=== PATIENT | female | born 1950 | race Caucasian/White ===

== ENCOUNTER 2016-09-22 11:54 | Emergency (ER) | payer OTHER ==
[~2016-09-22] VITALS: Ht 162.6 cm; Wt 89.6 kg
[~2016-09-22 11:54] MED LIST: ACET-749 PO; ASPI81TA28 PO; ATV5 PO; BIMA0.01 OPB; CALC200T PO; CLB200 PO; FLUO20CA35 PO; HYDR-3419 PO; INDA1TAB3 PO; MAGNTAB4 PO; METO25TA3 PO; POTA-335 PO; SYN150 PO
[2016-09-22 11:59] VITALS: TEMP 36.6; Ht 162.6 cm; Wt 89.6 kg
[2016-09-22] MEDS ORDERED: OXYCODONE/ACETAMINOPHEN 5-325 TAB PO ONE (12:15)
[2016-09-22] MEDS ORDERED: ACET-1256 PO (12:18)
--- NOTE | 2016-09-22 12:41 | EMERGENCY ROOM VISIT NOTE ---
History First contact with patient: 12:07 Chief Complaint: FALL Stated Complaint: FALL History of Present Illness The patient is a 66 year old female who presents to the Emergency Room with complaints of fall. The patient states that she was home and walking to get in the car when she slipped and fell. She states she fell forward flat onto her chest. She states that she did not have her hand out to catch herself. She states she did not strike her face. The patient complains of pain in the center of the chest. The pain is worse with extension and abduction of the arms. She rates her discomfort a 9/10. She denies striking her head or having loss of consciousness. She denies any shortness of breath or trouble breathing at this time. She denies any abdominal pain, nausea or vomiting. She states that she sustained a small abrasion to the right knee but does not have any pain in this area. She denies any other pain or injury to the extremities. Review of Systems A 10 system review of systems was completed with positives and pertinent negatives listed in the HPI. Past Medical/Surgical History Medical Problems: (1) Benign essential hypertension (2) Endometrial adenocarcinoma (3) Hypothyroidism Social History Smoking Status: Former Smoker Marital Status: Housing Status: lives with family Current/Historical Medications Scheduled Aspirin (Aspirin Ec), 81 MG PO LUNCH Bimatoprost (Lumigan), 1 DROPS OPB HS Calcium Carbonate-Vitamin D (Oscal 500/200 D-3), 1 TAB PO BID Celecoxib (Celebrex *), 200-400 MG PO DAILY Fluoxetine (Prozac), 20 MG PO QAM Indapamide (Lozol), 1.25 MG PO QAM Levothyroxine (Synthroid *), 0.15 MG PO 5XWK Magnesium Chloride (Slow-Mag Tab), 3 TAB PO BID Metoprolol Succ (Toprol Xl) (Toprol-Xl), 25 MG PO QAM Potassium Chloride (Micro-K Ext Rel), 3 TAB PO BID Scheduled PRN Acetaminophen (Tylenol), 1,000 MG PO DAILY PRN for Pain Hydrocodon/Acetaminophen 5MG/300MG (Vicodin (5MG/300MG)), 1 TAB PO Q6H PRN for Pain Lorazepam (Ativan *), 0.5-1 MG PO for Anxiety Oxycodone/Acetaminophen 5MG/325MG (Percocet 5MG/325MG), 1-2 TABS PO Q6 PRN for Pain Allergies Coded Allergies: Eggs or Egg-derived Products (Verified Allergy, Unknown, nausea/vomiting/ hives, 09/22/16) Penicillins (Verified Allergy, Unknown, HIVES, 09/22/16) [place] (Verified Allergy, Unknown, nausea/vomiting, 09/22/16) Morphine (Verified Adverse Reaction, Unknown, MAKES HER "WIRED", 09/22/16) Uncoded Allergies: band aids (Allergy, Unknown, skin blisters, 09/20/14) Physical Exam Vital Signs Date Time Temp Pulse Resp B/P Pulse Ox O2 Delivery O2 Flow Rate FiO2 09/22/16 14:08 52 18 126/71 94 09/22/16 11:59 36.6 69 16 163/82 95 Room Air Physical Exam VITALS: Vitals are noted on the nurse's note and reviewed by myself. Vital signs stable. GENERAL: This is a 66-year-old female, in no acute distress, nondiaphoretic, well-developed well-nourished. SKIN: The skin was without rashes, erythema, edema, or bruising. There is no tenting of the skin. Capillary reflex less than 2 seconds. HEAD: Normocephalic atraumatic. EARS: External auditory canals clear, tympanic membranes pearly jurado without erythema or effusion bilaterally. EYES: Pupils equal round and reactive to light and accommodation. Conjunctivae without injection, sclerae without icterus. Extraocular movements intact. NOSE: Patent, turbinates without inflammation or discharge. MOUTH: Mucous membranes moist. Tonsils are not enlarged. Pharynx without erythema or exudate. Uvula midline. Airway patent. Tongue does not deviate. NECK: Supple without nuchal rigidity. Cervical spine is nontender. No JVD. HEART: Regular rate and rhythm without murmurs gallops or rubs. LUNGS: Clear to auscultation bilaterally without wheezes, rales or rhonchi. No retractions or accessory muscle use. There is mild tenderness to palpation to the center of the chest and over the pectoral muscles. ABDOMEN: Positive bowel sounds x 4. Soft, nontender, without masses or organomegaly. MUSCULOSKELETAL: No muscle atrophy, erythema, or edema noted. Full range of motion without joint tenderness in all extremities. The patient has pain over the pectoral muscles when she extends the arms posteriorly. Normal gait. Strength 5/5 throughout. There is a superficial abrasion to the right knee without bleeding. There is no tenderness, ecchymosis, edema or deformity of the right knee. There is a midline well-healed surgical incision over the left knee and there is no pain or abnormality of the left knee. NEURO: Patient was alert and oriented to person place and time. Normal sensation to light and sharp touch. No focal neurological deficits. Medical Decision & Procedures ER Provider Diagnostic Interpretation: TWO VIEW CHEST CLINICAL HISTORY: Fall. Chest wall pain. FINDINGS: PA and lateral chest radiographs are compared to study dated 02/18/2015. The heart is mildly enlarged. The pulmonary vasculature is noncongested. Chronic interstitial thickening is similar to previous. Minimal left basilar atelectasis is observed. There is no airspace consolidation, pleural effusion, or pneumothorax. The skeletal structures are osteopenic. The bony thorax appears intact. Degenerative change and scoliosis is noted in the thoracic spine. Cholecystectomy clips are seen in the right upper quadrant. IMPRESSION: Mild cardiac enlargement with no acute cardiopulmonary abnormality. Medications Administered Medications (Trade) Dose Ordered Sig/Kalen Route Start Time Stop Time Status Last Admin Dose Admin Oxycodone/ Acetaminophen (Percocet 5-325MG Tab) 1 tab NOW ONCE PO 09/22/16 12:15 09/22/16 12:17 DC 09/22/16 12:24 1 TAB ED Course The patient was seen and examined. Previous visits were reviewed. The patient suffered a mechanical fall when she fell for it onto her chest. She did not strike her head, face or have loss of consciousness. She was not able to break her fall with her hands. I suspect that she has a chest wall contusion and strain of the pectoralis muscles. Chest x-ray was negative for pneumothorax, hemothorax or obvious rib fracture. She does not have any complaints of abdominal pain and no abdominal tenderness on exam. She was given 1 Percocet in the emergency department with improvement in her pain. She was given a prescription for Percocet. She should contact her family doctor to schedule a follow-up appointment for further evaluation and management. She should return to the ER with any worsening symptoms. The patient was also seen and examined by who agrees with the assessment and treatment plan. Medical Decision The differential diagnosis includes chest wall contusion, muscle strain, pneumothorax, hemothorax, pulmonary contusion, cardiac contusion, intra- abdominal injury, among others NAHOMY Drug Monitoring Program Search Results: patient reviewed within database, see additional documentation Drug Monitoring Findings: The patient does receive regular prescriptions for [place] that she takes only on a when necessary basis. Given the fall and the acute pain and injury, she was given additional, small prescription for Percocet. Impression Primary Impression: Fall Additional Impressions: Chest wall muscle strain Chest wall contusion Departure Information Dispostion Home / Self-Care Condition GOOD Prescriptions Oxycodone/Acetaminophen 5MG/325MG (PERCOCET 5MG/325MG) Tab 1-2 TABS PO Q6 Y for Pain, #20 TAB For Initial Treatment Prov: Cynthia Mendez PA-C 09/22/16 Referrals Olayinka Miller M.D. (PCP) Patient Instructions ED Contusion Chest Wall, My [facility] Additional Instructions Ibuprofen 600 mg every 6-8 hours for moderate pain Percocet 1-2 tablet every 4-6 hours as needed for worse pain. No driving or alcohol use with Percocet and do not take with Tylenol. Rest, no heavy lifting more than 15 pounds for the next 5-7 days Return with any severe chest pain, trouble breathing, shortness of breath, fevers, abdominal pain Otherwise, recheck with your family doctor at the end of the week if symptoms are not improving Ice over the next 24-48 hours, then use heat Problem Qualifiers Primary Impression: Fall Encounter type: initial encounter Qualified Codes: W19.XXXA - Unspecified fall, initial encounter
--- NOTE | 2016-09-22 13:15 | DIAGNOSTIC IMAGING REPORT ---
TWO VIEW CHEST CLINICAL HISTORY: Fall. Chest wall pain. FINDINGS: PA and lateral chest radiographs are compared to study dated 02/18/2015. The heart is mildly enlarged. The pulmonary vasculature is noncongested. Chronic interstitial thickening is similar to previous. Minimal left basilar atelectasis is observed. There is no airspace consolidation, pleural effusion, or pneumothorax. The skeletal structures are osteopenic. The bony thorax appears intact. Degenerative change and scoliosis is noted in the thoracic spine. Cholecystectomy clips are seen in the right upper quadrant. IMPRESSION: Mild cardiac enlargement with no acute cardiopulmonary abnormality. Electronically signed by: Henrik Lawson M.D. 09/22/2016 1:13 PM Dictated Date/Time: 09/22/2016 1:11 PM
--- NOTE | 2016-09-22 13:51 | EMERGENCY ROOM VISIT NOTE ---
ED Visit Note First contact with patient: 12:07 Patient was seen by our PA/COMPUTATIONAL PHYSICIST. I was involved in the patient's care and did evaluate the patient myself. I was involved in the care throughout the ER stay. The patient presents after falling. She is sore across the sternal chest wall. No bony step-off. Chest x-ray is unremarkable. Contusion seems most likely. The patient is being discharged home.
[2016-09-22] MEDS ORDERED: OXYC-57 PO (13:55)
[2016-09-22 14:08] VITALS: BP 126/71; PULSE 52; O2SAT 94
[2017-04-21] MEDS ORDERED: DORZ2SOL17 OPB (09:08)
[2017-04-21] MEDS ORDERED: FLUO20CA35 PO (09:08)
[2017-04-21] MEDS ORDERED: IMD/2 PO (09:08)
[2017-04-21] MEDS ORDERED: MAGN1CAP2 PO (09:08)
[2017-04-21] MEDS ORDERED: LZL25 PO (09:08)
[2017-04-21] MEDS ORDERED: POTA10CA28 PO (09:08)
[2017-05-20] MEDS ORDERED: BROM0.07 (10:52)
[2017-05-20] MEDS ORDERED: DIFL0.0519 (10:52)
[2017-05-20] MEDS ORDERED: GATI1SOL2 (10:52)
== END 2016-09-22 14:09 | disposition home or self-care (01) ==
LOC: C.EDB 11:55 → C.EDC 14:09
DX: S20.219A Contusion of unspecified front wall of thorax, initial encounter (principal); W19.XXXA Unspecified fall, initial encounter; I10 Essential (primary) hypertension; E03.9 Hypothyroidism, unspecified; Z87.891 Personal history of nicotine dependence

== ENCOUNTER → 2016-12-17 | Outpatient (CLI) | payer OTHER ==
[~2016-12-17] MED LIST changes: +ACET-1256 PO; -ACET-749 PO; +BROM0.07; +DIFL0.0519; +DORZ2SOL17 OPB; +GATI1SOL2; +IMD/2 PO; +LZL25 PO; +MAGN1CAP2 PO; +OXYC-57 PO; +POTA10CA28 PO
--- NOTE | 2016-12-17 16:46 | MAMMOGRAPHY REPORT ---
BILATERAL DIGITAL SCREENING MAMMOGRAM WITH CAD: 12/17/2016 CLINICAL HISTORY: Routine screening examination. TECHNIQUE: Bilateral CC and MLO views were obtained. Current study was also evaluated with a Comput er Aided Detection (CAD) system. COMPARISON: Comparison is made to exams dated: 12/13/2015 mammogram, 11/17/2014 mammogram, 10/06/2013 m ammogram, 10/05/2012 mammogram, 09/30/2011 mammogram, and 10/08/2010 mammogram - [facility]. BREAST COMPOSITION: There are scattered areas of fibroglandular density in both breasts. FINDINGS: There is a stable benign rim calcification in the anterior left breast. No suspicious mas s, architectural distortion or cluster of microcalcifications is seen. IMPRESSION: ACR BI-RADS CATEGORY 1: NEGATIVE There is no mammographic evidence of malignancy. A 1 year screening mammogram is recommended. The p atient will receive written notification of the results. Approximately 10% of breast cancers are not detected with mammography. A negative mammographic repor t should not delay biopsy if a clinically suggestive mass is present. Savana Myles M.D. ay/:12/17/2016 16:08:34 Garbage Pick Up Man: Mel LAGUNAS([place])(M), [facility] letter sent: Normal 1/2 BI-RADS Code: ACR BI-RADS Category 1: Negative
== END | disposition home or self-care (01) ==
LOC: C.MAMM 09:02
PROVIDERS: ATTEND Obstetrics & Gynecology
DX: Z12.31 Encounter for screening mammogram for malignant neoplasm of breast (principal)

== ENCOUNTER → 2017-01-29 | Outpatient (CLI) | payer OTHER ==
[2017-01-29 12:47] LABS: BASO % 0.4 %; BASO ABS # 0.02 K/uL (0-0.2); COMPLETE YES; EOS % 5.8 %; HEMATOCRIT 41.9 % (37-47); IG% 0.4 %; LYMPH % 27.3 %; LYMPH ABS # 1.31 K/uL (1.2-3.4); MEAN CELL VOLUME 89.3 fL (80-100); MEAN CORPUSCULAR HEMOGLOBIN 29.9 pg (25-34); MEAN CORPUSCULAR HGB CONC 33.4 g/dl (32-36); MEAN PLATELET VOLUME 11.4 fL (7.4-10.4); MONO % 6.7 %; NEUT % 59.4 %; PLATELET COUNT 263 K/uL (130-400); RED BLOOD COUNT 4.69 M/uL (4.2-5.4)
[2017-01-29 13:06] LABS: CALCIUM 9.2 mg/dl (8.5-10.1)
[2017-01-29 13:11] LABS: ALT/SGPT 28 U/L (12-78); AST/SGOT 21 U/L (15-37); BLOOD UREA NITROGEN 13 mg/dl (7-18); BUN/CREATININE RATIO 17.5 (10-20); CARBON DIOXIDE 30 mmol/L (21-32); CHLORIDE 101 mmol/L (98-107); CHOLESTEROL 212 mg/dl (0-200); CREATININE 0.73 mg/dl (0.60-1.20); GLUCOSE 84 mg/dl (70-99); POTASSIUM 3.2 mmol/L (3.5-5.1); SODIUM 138 mmol/L (136-145); TRIGLYCERIDES 143 mg/dl (0-150); VERY LOW DENSITY LIPOPROT CALC 29 mg/dl
[2017-01-29 13:19] LABS: ALB/GLOB RATIO 1.1 (0.9-2); ALKALINE PHOSPHATASE 76 U/L (45-117); CHOLESTEROL/HDL RATIO 4.2; HDL CHOLESTEROL 51 mg/dl; THYROID STIMULATING HORMONE 0.559 uIu/ml (0.300-4.500)
== END | disposition home or self-care (01) ==
LOC: C.LABSPEC 12:17
PROVIDERS: ATTEND Internal Medicine
DX: I10 Essential (primary) hypertension (principal); E03.9 Hypothyroidism, unspecified; M19.90 Unspecified osteoarthritis, unspecified site; E78.5 Hyperlipidemia, unspecified

== ENCOUNTER → 2017-02-13 | Outpatient (CLI) | payer OTHER ==
[2017-02-13 15:10] LABS: BASO % 0.5 %; BASO ABS # 0.03 K/uL (0-0.2); COMPLETE YES; EOS % 5.3 %; HEMATOCRIT 42.4 % (37-47); IG% 0.3 %; LYMPH % 24.4 %; LYMPH ABS # 1.52 K/uL (1.2-3.4); MEAN CELL VOLUME 89.6 fL (80-100); MEAN CORPUSCULAR HEMOGLOBIN 29.6 pg (25-34); MEAN PLATELET VOLUME 11.1 fL (7.4-10.4); MONO % 7.4 %; NEUT % 62.1 %; PLATELET COUNT 265 K/uL (130-400); RED BLOOD COUNT 4.73 M/uL (4.2-5.4); WHITE BLOOD COUNT 6.22 K/uL (4.8-10.8)
[2017-02-13 15:21] LABS: ALT/SGPT 25 U/L (12-78); AMYLASE 60 U/L (25-115); AST/SGOT 15 U/L (15-37); BLOOD UREA NITROGEN 17 mg/dl (7-18); BUN/CREATININE RATIO 22.8 (10-20); CALCIUM 8.9 mg/dl (8.5-10.1); CARBON DIOXIDE 31 mmol/L (21-32); CHLORIDE 103 mmol/L (98-107); CREATININE 0.74 mg/dl (0.60-1.20); GLUCOSE 103 mg/dl (70-99); POTASSIUM 3.1 mmol/L (3.5-5.1); SODIUM 141 mmol/L (136-145)
[2017-02-13 15:24] LABS: ALB/GLOB RATIO 1.2 (0.9-2); ALKALINE PHOSPHATASE 74 U/L (45-117)
== END | disposition home or self-care (01) ==
LOC: C.LABSPEC 14:54
PROVIDERS: ATTEND Internal Medicine
DX: R10.9 Unspecified abdominal pain (principal); K52.9 Noninfective gastroenteritis and colitis, unspecified

== ENCOUNTER → 2017-02-14 | Outpatient (CLI) | payer OTHER | END | disposition home or self-care (01) | LOC: C.LABSPEC 08:16 | PROVIDERS: ATTEND Internal Medicine | DX: R10.9 Unspecified abdominal pain (principal) ==

== ENCOUNTER → 2017-05-02 | Outpatient (CLI) | payer OTHER ==
[~2017-05-02] MED LIST changes: -ACET-1256 PO; -INDA1TAB3 PO; -MAGNTAB4 PO; -OXYC-57 PO; -POTA-335 PO
--- NOTE | 2017-05-02 11:42 | DIAGNOSTIC IMAGING REPORT ---
RIGHT HIP UNILATERAL 2 VIEWS CLINICAL HISTORY: Right hip pain. No recent trauma. COMPARISON: CT of the abdomen and pelvis July 15, 2014. FINDINGS: Alignment of the right hip is anatomic. There is no fracture or suspicious lesion. There is no radiographic evidence of avascular necrosis. There is moderate joint space narrowing with mild osteophytosis. IMPRESSION: 1. No acute fracture. 2. Mild to moderate osteoarthritis of the right hip. Electronically signed by: Sukhwinder Guzman M.D. 05/02/2017 11:40 AM Dictated Date/Time: 05/02/2017 11:40 AM
== END | disposition home or self-care (01) ==
LOC: C.RAD 10:47
PROVIDERS: ATTEND Internal Medicine
DX: M25.551 Pain in right hip (principal)

== ENCOUNTER → 2017-05-20 | Day surgery (SDC) | payer OTHER ==
[2017-04-21 09:09] VITALS: Ht 162.6 cm; Wt 84.1 kg
--- NOTE | 2017-05-18 13:57 | History and Physical ---
History & Physical Date of Service May 18, 2017. History & Physical 67 year-old female scheduled to undergo right cataract surgery on 08/2017. Her medical problems include: * endometrial adenocarcinoma diagnosed in June of 2014. She was treated at [facility]. It was a stage II. She underwent surgery with AURE/ BSO and pelvic lymph node resection on 07/29/2014. Postoperatively she was treated with radiation therapy, cuff brachii therapy, and 3 cycles of carboplatin/Taxol. She has no evidence of any reoccurrence * Arterial hypertension * Inflammatory arthritis * Overweight * Anxiety * Mild depression * Hypothyroidism * Glaucoma Her current medications include: * levothyroxine 50 mcg daily 5 days a week she skips Wednesdays and Sundays * Metoprolol tartrate 50 mg daily * Indapamide 2.5 mg daily * Prozac 20 mg daily * Celebrex 200 mg once or twice a day * Potassium chloride 10 mEq she is taking a total of 6 capsules daily * lorazepam 0.5 mg one or 2 tablets daily * Aspirin 81 mg daily * calcium with vitamin D 600 mg twice a day * Slow magnesium at total of 6 tablets daily * Lumigan 0.01% one drop in each eye daily * She has been prescribed Tylenol with codeine #3 for pain control. She also takes Vicodin one tablet at night. Prescriptions by her travel information center supervisor. She has followups with Dr. Ron Jauregui in rheumatology, Dr. Keanu Mckenzie in orthopedic surgery, Dr. Suresh at [facility] for her endometrial cancer. She is . No children. No smoking. no excessive alcohol. 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 ALLERGIES: * penicillin. Had a rash. * Eggs. * Tramadol which causes headaches REVIEW OF SYSTEMS: She denied any headache or dizziness or lightheadedness. Decreased vision in the right eye. Denied any earache sore throat or neck pain. Denied any chest pain or sugar or tightness. No shortness of breath. She does complain of recurrent abdominal pain. Recurrent diarrhea. No blood in her stool. No urinary problem. She does complain of joint pain. Especially her left hip. No ankle edema. EXAMINATION: GENERAL : Well developed. Well nourished. No acute distress.Weight 84.09 kg, height 162.6 cm, BMI 31.8. VITAL SIGNS : Blood Pressure : 138/72, pulse 64, temperature 90.8, respiration 18. SKIN : Warm and dry. No rash. HEENT :Wears glasses. Treated for glaucoma. Cataracts right eye. NECK : Supple. No adenopathy. No thyromegaly. No JVD. Normal carotid pulses. No carotid bruit. HEART: Regular heart sounds without any murmur rub or gallop. PMI not displaced. LUNGS: Clear. Normal breath sounds. ABDOMEN: Soft.nonspecific abdominal tenderness without any guarding or rebound.. No organomegaly or masses. Good bowel sounds. BACK: No spine or CVA tenderness. EXTREMITIES : No edema clubbing or cyanosis. No joint or muscle tenderness. Good peripheral pulses.Surgical scars from prior surgery NEUROLOGICAL EXAMINATION: She is alert and oriented. No evidence of any lateralized deficit. ASSESSMENT: * preoperative examination. Patient is scheduled to undergo right cataract surgery on 05/20/2017 * History of endometrial cancer. * Arterial hypertension * Osteoarthritis * Inflammatory polyarthritis * Hypothyroidism * Glaucoma * Anxiety and mild depression PLAN: * continuing her same medications * I see no contraindication dictation to her anticipated cataract surgery.
[~2017-05-20] VITALS: Ht 162.6 cm; Wt 84.1 kg
[~2017-05-20] MED LIST changes: +500ML BSS 0.3ML EPI 1:1000PF IRRIG ONE; +ACETAMINOPHEN 325 MG TAB PO PRN; +AMVISC PLUS 0.8ML SYRINGE INT OCU ONE; +ATROPINE SULFATE 0.1 MG/ML 5ML SYR IV PRN; +BSS FLUSH ONE; +EpHEDrine SULFATE INJ 50 MG/ML AMP IV PRN; +EpINEphrine INJ 1MG/ML AMP 1 MG/ML AMP ONE; +LACTATED RINGER'S 1000ML 500 ML IV SCH; +LIDOCAINE 3.5% OPH GEL PER APPLICATION CHARGE ONE; +LIDOCAINE HCL 1% MPF 2 ML VIAL ONE; +MIDAZOLAM HCL 1 MG/ML 2ML VIAL ONE; +MIX: 4ML BSS 1ML EPI 1:1000 PF INSTIL ONE; +OCUCOAT 1 ML SOLN IO ONE; +POVIDONE-IODINE OP SOLN 30 ML BTL ONE; +PROPARACAINE 0.5% OP SOLN PER DROP CHARGE OPR SCH; +TOBRAMYCIN/DEXAMETHASONE OPH OINT PER APPLN CHARGE ONE
[2017-05-20] MEDS: PHENYLEPHRINE HCL 2.5% OP SOLN PER DROP CHARGE OPR SCH ×2 (11:01→11:06)
[2017-05-20] MEDS: TROPICAMIDE 1% OP SOLN PER DROP CHARGE OPR SCH ×2 (11:02→11:06)
[2017-05-20] MEDS: CYCLOPENTOLATE HCL 1% OP SOLN PER DROP CHARGE OPR SCH ×2 (11:03→11:08)
[2017-05-20] MEDS: KETOROLAC 0.5% OP SOLN PER DROP CHARGE OPR SCH ×2 (11:04→11:09)
[2017-05-20] MEDS: GATIFLOXACIN OP SOLN PER DROP CHARGE OPR SCH ×2 (11:05→11:15)
--- NOTE | 2017-05-20 11:35 | History & Physical Bridge - SC ---
H&P Re-Evaluation Bridge Note: I have examined the patient, reviewed the History & Physical and in the interval since the performance of the History & Physical I have noted the following changes of clinical significance: No changes noted
--- NOTE | 2017-05-20 12:02 | Anesthesia Progress Nt - [facility] ---
Anesthesia Post Op Note Date & Time May 20, 2017 at 12:02 Vital Signs Pain Intensity: 0 Vital Signs Past 12 Hours Date Time Temp Pulse Resp B/P (MAP) Pulse Ox O2 Delivery O2 Flow Rate FiO2 05/20/17 10:52 36.7 66 18 137/84 (101) 94 Room Air Notes Mental Status: alert / awake / arousable, participated in evaluation Pt Amnestic to Procedure: Yes Nausea / Vomiting: adequately controlled Pain: adequately controlled Airway Patency, RR, SpO2: stable & adequate BP & HR: stable & adequate Hydration State: stable & adequate Anesthetic Complications: no major complications apparent
--- NOTE | 2017-05-20 12:05 | [facility] Operative Report ---
Operative Report Date of Service May 20, 2017. Operative Report 1. PREOPERATIVE DIAGNOSIS: Cataract of the right eye. 2. POSTOPERATIVE DIAGNOSIS: Same. 3. PROCEDURE: Phacoemulsification with intraocular lens implantation of the right eye. SURGEON: Dr. Faisal Bustos. ANESTHESIA: Topical Lidocaine gel, 1% Non- Preserved intracameral Lidocaine, and monitored intravenous sedation. INDICATIONS FOR THE PROCEDURE: The patient is a 67 - year-old female with a history of cataract of the right eye causing significant visual impairment. The details of the proposed procedure were explained to the patient who asked appropriate questions and following discussion of all risks, benefits and alternatives agreed to have the procedure done. 4. OPERATION AND FINDINGS: DESCRIPTION OF PROCEDURE: After informed consent was obtained, the patient was brought to the Operating Room at the [facility]. The patient was placed in a supine position and then the right eye was prepped and draped in the usual sterile fashion for intraocular surgery. A drop of topical Lidocaine gel was placed in the operative eye. A wire lid speculum was then placed in the fornices. A corneal paracentesis was then created temporally. The Non-Preserved Lidocaine was then instilled into the anterior chamber. The anterior chamber was then pressurized with viscoelastic. A 2.0 mm clear corneal incision was then created temporally. A cystotome was inserted into the anterior chamber and used to create a tear in the anterior lens capsule. This capsular tear was then used to create a small flap and the flap was dragged in a counterclockwise direction in order to create a continuous curvilinear capsulorrhexis. Hydrodissection was accomplished with balanced salt solution. Phacoemulsification of the lens nucleus was then performed in a standard [id number] technique. The phaco time was 20 seconds with an average power of 14 %. The remaining cortical material was removed using irrigation aspiration. The capsular bag was then filled with viscoelastic. A Bausch [employer] Lomb MI60L +17.5 diopters lens was then loaded into the injector and injected into the capsular bag. The remaining viscoelastic was removed with the irrigation aspiration handpiece. The wound was hydrated and then checked and found to be watertight. The intraocular pressure was checked and found to be adequate. The wire lid speculum was removed and the patient's face was cleaned and dried. TobraDex ointment was placed in the inferior fornix. The patient was discharged to the Recovery Room having tolerated the procedure well. There were no complications. The patient will be seen tomorrow in the office for follow-up. I attest to the content of the Intraoperative Record and any orders documented therein. Any exceptions are noted below.
--- NOTE | 2017-05-20 12:05 | Discharge Instructions-SurgCtr ---
Discharge Instructions Date of Service May 20, 2017. Visit Reason for Visit: Cataract Right Eye Discharge Discharge Diagnosis / Problem: cataract Discharge Goals Goal(s): Improve function Activity Recommendations Activity Limitations: per Instructions/Follow-up section Anesthesia . Post Anesthesia Instructions: If you have had General Anesthesia or IV Sedation: * Do not drive today. * Resume driving when surgeon permits. * Do not make important decisions or sign legal documents today. * Call surgeon for: 1. Temperature elevations greater than 101 degrees F. 2. Uncontrollable pain. 3. Excessive bleeding. 4. Persistent nausea and vomiting. 5. Medication intolerance (nausea, vomiting or rash). * For nausea and vomiting use only clear liquids such as: tea, soda, bouillon until nausea subsides, then gradually increase diet as tolerated. * If you have any concerns or questions, call your surgeon's office. If physician is unavailable and it is an emergency, call 911 or go to the nearest emergency room. . Instructions / Follow-Up Instructions / Follow-Up ACTIVITY RECOMMENDATIONS: * No strenuous lifting, jogging or running for 4 days * No swimming or yard work for 1 week. * Limited bending is permitted, such as putting on shoes. RETURN TO SCHOOL/WORK: No work until seen by physician in office. MEDICATIONS: Resume previous medications unless instructed otherwise by your surgeon. This includes eye drops for glaucoma. Zymaxid/Gatifloxacin ([place] cap) - one drop every 2 hours until bedtime Nevanac/Ilevro/Prolensa/Ketorolac (jurado cap) - one drop every 4 hours until bedtime Prednisolone/Durezol (white/pink cap, SHAKE WELL) - one drop every 2 hours until bedtime Starting tomorrow - all 3 drops every 4 hours until seen in the office Optive drops - as needed for discomfort SPECIAL CARE INSTRUCTIONS: * Wear eyeshield when sleeping, for four nights. * You may wear your own glasses or sunglasses while awake. * You may read or watch TV * You may shower and wash your face, but be gentle around the eye and pat dry. * Blurry vision and mild irritation are normal. * Call office if pain is more severe or vision becomes dark at . FOLLOW UP VISIT: Follow-up with Dr Bustos tomorrow. Diet Recommendations Home Diet: resume previous diet Procedures Procedures Performed: Right Eye Cataract Phacoemulsification With Introacular Lens Implant Pending Studies Studies pending at discharge: no Medical Emergencies . Who to Call and When: Medical Emergencies: If at any time you feel your situation is an emergency, please call 911 immediately. . Non-Emergent Contact Non-Emergency issues call your: [facility] [employer] . . "Provider Documentation" section prepared by Faisal Bustos. .
[2017-05-20 12:06] VITALS: TEMP 36.7
[2017-05-20 12:28] VITALS: BP 123/80; PULSE 55; O2SAT 100
== END | disposition home or self-care (01) ==
LOC: X.SURG 10:28
PROVIDERS: ATTEND Ophthalmology
DX: H26.9 Unspecified cataract (principal); I10 Essential (primary) hypertension; E03.9 Hypothyroidism, unspecified; F41.9 Anxiety disorder, unspecified; F32.9 Major depressive disorder, single episode, unspecified; M06.4 Inflammatory polyarthropathy; H50.9 Unspecified strabismus; Z79.82 Long term (current) use of aspirin; Z79.899 Other long term (current) drug therapy; Z85.42 Personal history of malignant neoplasm of other parts of uterus; Z92.3 Personal history of irradiation; Z92.21 Personal history of antineoplastic chemotherapy

== ENCOUNTER → 2017-06-17 | Outpatient (CLI) | payer OTHER ==
[~2017-06-17] MED LIST changes: -500ML BSS 0.3ML EPI 1:1000PF IRRIG ONE; -ACETAMINOPHEN 325 MG TAB PO PRN; -AMVISC PLUS 0.8ML SYRINGE INT OCU ONE; -ATROPINE SULFATE 0.1 MG/ML 5ML SYR IV PRN; -BSS FLUSH ONE; -EpHEDrine SULFATE INJ 50 MG/ML AMP IV PRN; -EpINEphrine INJ 1MG/ML AMP 1 MG/ML AMP ONE; -LACTATED RINGER'S 1000ML 500 ML IV SCH; -LIDOCAINE 3.5% OPH GEL PER APPLICATION CHARGE ONE; -LIDOCAINE HCL 1% MPF 2 ML VIAL ONE; -MIDAZOLAM HCL 1 MG/ML 2ML VIAL ONE; -MIX: 4ML BSS 1ML EPI 1:1000 PF INSTIL ONE; -OCUCOAT 1 ML SOLN IO ONE; -POVIDONE-IODINE OP SOLN 30 ML BTL ONE; -PROPARACAINE 0.5% OP SOLN PER DROP CHARGE OPR SCH; -TOBRAMYCIN/DEXAMETHASONE OPH OINT PER APPLN CHARGE ONE
[2017-06-17 13:51] VITALS: BP 112/73; PULSE 72; TEMP 36.6; O2SAT 96
--- NOTE | 2017-06-17 15:44 | Radiation Oncology Follow-Up ---
Radiation Oncology Follow-Up Date of Visit Jun 17, 2017. Reason For Visit Annual follow-up Radiation Completion Date finished IMRT and 3 HDR treatments on 12-02-14 Diagnosis (1) Endometrial adenocarcinoma Status: Resolved Onset Date: 06/21/2014 Stage: ll Permanent Comment: Total laparoscopic hysterectomy with bilateral salpingo- oophorectomy. Right pelvic and obturator lymphadenectomy and lysis of adhesions. 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 She received 5040 cGy to the pelvis with IMRT followed by 3 HDR treatments total 6240 cGy Status post completion of systemic chemotherapy 02/13/2015 Last Edited By: Myrna Byrne on Jun 08, 2015 15:22 History of Present Illness Ms. Brady is a 66-year-old postmenopausal female who presented with vaginal bleeding. She went through menopause over 10 years ago and noted spotting for the past few months with 1 day of heavy bleeding. 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 His examination revealed no pelvic abnormalities. An endocervical dilatation was unable to be performed. An ultrasound was performed on 2013. A D&C was ultimately performed. The uterus sounded to 7.5 cm and a biopsy was performed on 2013. This revealed an endometrioid adenocarcinoma FIGO grade 1 of 3. The tissue was evaluated for microsatellite instability by immunohistochemistry. Intact expression of all 4 proteins were present within the carcinoma. These findings are therefore not consistent with microsatellite instability. Case: [id number]. The patient was subsequent seen by Dr. Rayne Jason Gynecologic Oncologist at [facility] for evaluation and discussion of treatment options. The tissue from [facility] was reviewed at their pathology Department confirming fragments of adenocarcinoma endometrioid grade 2 with squamous differentiation. Accession #: [id number]. A CT scan of the abdomen and pelvis was performed on this showed diffuse endometrial thickening likely related to the diagnosis of endometrial carcinoma. There was no CT evidence of metastatic disease. Dr. Jason discussed the management of endometrial cancer with the patient. The recommendation was for a total laparoscopic hysterectomy, bilateral salpingo-oophorectomy and pelvic lymphadenectomy. The patient agreed and on 07/29/2014 patient underwent a surgical procedure. This included a right pelvic and obturator lymphadenectomy and lysis of adhesions. The pathologic evaluation of the tissue confirmed an endometrial adenocarcinoma, endometrioid type, FIGO grade 2. The tumor invaded 14 mm into a myometrial thickness of 16 mm. There was evidence of lymphatic invasion. The tumor extended to the lower uterine segment and to the endocervix. The right tube and ovary were unremarkable. The left ovary was unremarkable. The left fallopian tube revealed an endometrioid adenocarcinoma favoring a primary lesion. The staging of the endometrial cancer was therefore a pathologic stage T2 N0 grade 2. The staging of the left fallopian tube confirmed intraepithelial endometrioid well-differentiated grade 1 measuring 0.1 cm. This was a pathologic Tis: Tubal intraepithelial carcinoma limited to tubal mucosa. Accession #: [id number]. The patient has recovered well from her surgery. Her case was presented at the multidisciplinary cancer conference at [facility]. Recommendations were based on NCCN Guidelines and included a recommendation of external radiation and vaginal vault boost for adjuvant treatment of the endometrioid carcinoma. The recommendation included subsequent consideration of 3 cycles of chemotherapy of Carbo/Taxol for her fallopian tube carcinoma. The patient will be seen by Dr. Whitaker for discussion of the chemotherapy. She completed the radiation therapy 12/02/2014. She received 5040 cGy with IMRT. She had 3 HDR treatments. Her total dose of radiation was 6240 cGy. She then returned and completed systemic chemotherapy 02/13/2015. Interim History She has been stable over this past year. She denies any vaginal bleeding or irritation. She has been seen by the gynecologic oncologist on 05/19/2017. She had no signs of recurrence. She does continue to have persistent diarrhea. She did state that she had difficulties with recurrent diarrhea even prior to having radiation therapy. She has tried [id number] products including fiber tablets and Imodium. She takes Imodium one or 2 tablets on a daily basis. She will have a feeling of urgency especially in the morning and then have diarrhea. She has seen a tank filler in the past. This was approximately 10 years ago. She had a colonoscopy March 2016. Allergies Coded Allergies: Eggs or Egg-derived Products (Verified Allergy, Unknown, nausea/vomiting/ hives, 05/20/17) Penicillins (Verified Allergy, Unknown, HIVES, 05/20/17) Morphine (Verified Adverse Reaction, Unknown, MAKES HER "WIRED", 05/20/17) Delray (Unverified Adverse Reaction, Unknown, nausea/vomiting, 05/20/17 ) Uncoded Allergies: band aids (Allergy, Unknown, skin blisters, 09/20/14) Home Medications Scheduled Aspirin (Aspirin Ec), 81 MG PO LUNCH Bimatoprost (Lumigan), 1 DROPS OPB HS Calcium Carbonate-Vitamin D (Oscal 500/200 D-3), 1 TAB PO BID Celecoxib (Celebrex *), 200-400 MG PO DAILY Dorzolamide Hcl (Trusopt Oph), 1 DROPS OPB BID Fluoxetine (Prozac), 20 MG PO QAM Indapamide (Indapamide), 1 TAB PO QAM Levothyroxine (Synthroid *), 0.15 MG PO 5XWK Loperamide Hcl (Imodium), 2 MG PO QAM Magnesium Oxide (Mg Supplement (Magnesium), 1 CAP PO QPM Metoprolol Succ (Toprol Xl) (Toprol-Xl), 25 MG PO QAM Potassium Chloride (Micro-K Ext Rel), 3 TAB PO BID Scheduled PRN Hydrocodon/Acetaminophen 5MG/300MG (Vicodin (5MG/300MG)), 1 TAB PO Q6H PRN for Pain Lorazepam (Ativan *), 0.5-1 MG PO for Anxiety Review of Systems Gastrointestinal: Symptoms: Diarrhea GI Comments: varies from day to day , but can be up to 6 times a day , robyn in the AM Oral: Symptoms: No Problems Respiratory: Symptoms: Dry Cough Other Respiratory: " I have allergies " Urinary: Symptoms: WNL Comments: has burning on urination at times, OK now , nocturia times 1 - 3 Skin: Symptoms: No Problems Physical Exam Vital Signs Date Time Temp Pulse Resp B/P (MAP) Pulse Ox O2 Delivery O2 Flow Rate FiO2 06/17/17 13:51 36.6 72 16 112/73 96 Pain: Side: Bilateral Pain Location: generalized joint pain Patient Pain Scale: 0 - 10 Initial Pain Intensity: 0.0 Additional Comments: Arthritic Pain Fatigue: None General Appearance: no apparent distress Eyes: normal inspection, EOMI ENT: normal ENT inspection, hearing grossly normal Neck: no adenopathy, thyroid normal Respiratory/Chest: lungs clear, no respiratory distress, no accessory muscle use Cardiovascular: regular rate, rhythm, no gallop, no murmur Abdomen: normal bowel sounds, non tender, soft, no organomegaly, no pulsatile mass Genitourinary - Female: Normal external genitalia. There is foreshortening of the vagina. There is mild telangiectasia at the apex. There are no visible or palpable masses. There is no tenderness on bimanual examination. Anal / Rectum: Normal sphincter tone. Mild internal hemorrhoids. No rectal masses and no rectal bleeding. Extremities: no pedal edema Neurologic/Psychiatric: no motor/sensory deficits, alert, normal mood/affect Skin: warm/dry Lymphatic: no adenopathy Assessment & Plan Plan: Continue follow-up with her primary care physician, Dr. Whitaker in medical oncology, and her gynecologic oncologist. We discussed the intermittent urgency of bowel movements and diarrhea. I have suggested that she see a tank filler. There may be recommendation for medication that may help with the recurring diarrhea. She did not wish to have a referral placed at this time. She stated that she would think about this and let me know. I reviewed with her that cholestyramine is now being used for problematic diarrhea. She will research this further. She'll otherwise return to our office in 1 year. She may call if she has any questions or concerns in the interim. She will call if she feels she would like a referral to gastroenterology. Total Time In Follow-Up I spent 25 minutes speaking to the patient performing examination. I spent 15 minutes reviewing information in completing this note. Copy To Olayinka Miller M.D.; Talha Suresh M.D.; David Whitaker M.D.
== END | disposition home or self-care (01) ==
LOC: C.ONC 13:22
PROVIDERS: ATTEND Physician Assistant Medical
DX: Z08 Encounter for follow-up examination after completed treatment for malignant neoplasm (principal); Z92.3 Personal history of irradiation; Z85.42 Personal history of malignant neoplasm of other parts of uterus

== ENCOUNTER → 2017-08-27 | Outpatient (CLI) | payer OTHER ==
[~2017-08-27] MED LIST changes: -BROM0.07; -DIFL0.0519; -GATI1SOL2
[2017-08-27 13:11] LABS: BASO % 0.3 %; BASO ABS # 0.02 K/uL (0-0.2); COMPLETE YES; HEMATOCRIT 41.4 % (37-47); IG% 0.5 %; LYMPH % 21.6 %; LYMPH ABS # 1.35 K/uL (1.2-3.4); MEAN CELL VOLUME 88.5 fL (80-100); MEAN CORPUSCULAR HEMOGLOBIN 30.6 pg (25-34); MEAN CORPUSCULAR HGB CONC 34.5 g/dl (32-36); MEAN PLATELET VOLUME 11.5 fL (7.4-10.4); MONO % 8.8 %; NEUT % 65.8 %; PLATELET COUNT 246 K/uL (130-400); RED BLOOD COUNT 4.68 M/uL (4.2-5.4); WHITE BLOOD COUNT 6.26 K/uL (4.8-10.8)
[2017-08-27 13:19] LABS: ALT/SGPT 25 U/L (12-78); BLOOD UREA NITROGEN 17 mg/dl (7-18); BUN/CREATININE RATIO 28.4 (10-20); CALCIUM 9.1 mg/dl (8.5-10.1); CARBON DIOXIDE 30 mmol/L (21-32); CHLORIDE 102 mmol/L (98-107); CREATININE 0.59 mg/dl (0.60-1.20); GLUCOSE 97 mg/dl (70-99); MAGNESIUM 1.8 mg/dl (1.8-2.4); SODIUM 138 mmol/L (136-145)
[2017-08-27 13:29] LABS: ALB/GLOB RATIO 1.2 (0.9-2); ALKALINE PHOSPHATASE 73 U/L (45-117); AST/SGOT 15 U/L (15-37); THYROID STIMULATING HORMONE 0.661 uIu/ml (0.300-4.500)
== END | disposition home or self-care (01) ==
LOC: C.LABSPEC 12:27
PROVIDERS: ATTEND Internal Medicine
DX: I10 Essential (primary) hypertension (principal); E87.6 Hypokalemia; E03.9 Hypothyroidism, unspecified; E83.41 Hypermagnesemia

== ENCOUNTER → 2017-10-16 | Outpatient (CLI) | payer OTHER ==
[2017-10-16 16:10] LABS: INFLUENZA B ANTIGEN Neg for Influ B (NEG)
== END | disposition home or self-care (01) ==
LOC: C.LAB 14:30
PROVIDERS: ATTEND Internal Medicine
DX: R69 Illness, unspecified (principal)

== ENCOUNTER → 2017-10-22 | Outpatient (CLI) | payer OTHER ==
--- NOTE | 2017-10-22 10:03 | DIAGNOSTIC IMAGING REPORT ---
CHEST 2 VIEWS ROUTINE HISTORY: 67 years-old Female COUGH acute cough COMPARISON: Chest radiograph 09/22/2016 TECHNIQUE: PA and lateral views of the chest FINDINGS: Cardiomediastinal and hilar silhouettes are within normal limits. Lungs are mildly hyperinflated. Areas of chronic interstitial thickening of the lung bases appear unchanged. There is no pneumothorax, pleural effusion, focal airspace consolidation or overt pulmonary edema. Mild extra scoliosis of the midthoracic spine. Degenerative changes are noted within the shoulders and spine. IMPRESSION: No acute process. The above report was generated using voice recognition software. It may contain grammatical, syntax or spelling errors. Electronically signed by: Andrea Sparks M.D. 10/22/2017 10:02 AM Dictated Date/Time: 10/22/2017 10:01 AM
== END | disposition home or self-care (01) ==
LOC: C.RAD 09:36
PROVIDERS: ATTEND Internal Medicine
DX: R05 Cough (principal)

== ENCOUNTER → 2017-12-19 | Outpatient (CLI) | payer OTHER ==
--- NOTE | 2017-12-22 07:44 | MAMMOGRAPHY REPORT ---
BILATERAL DIGITAL SCREENING MAMMOGRAM TOMOSYNTHESIS WITH CAD: 12/19/2017 CLINICAL HISTORY: Routine screening. Patient has no complaints. TECHNIQUE: Breast tomosynthesis in addition to standard 2D mammography was performed. Current study was also evaluated with a Computer Aided Detection (CAD) system. COMPARISON: Comparison is made to exams dated: 12/17/2016 mammogram, 12/13/2015 mammogram, 11/17/2014 ma mmogram, 10/06/2013 mammogram, 10/05/2012 mammogram, and 09/30/2011 [facility]ogram [facility]. BREAST COMPOSITION: There are scattered areas of fibroglandular density in both breasts. FINDINGS: No suspicious masses, calcifications, or areas of architectural distortion are noted in ei ther breast. There has been no significant interval change compared to prior exams. IMPRESSION: ACR BI-RADS CATEGORY 1: NEGATIVE There is no mammographic evidence of malignancy. A 1 year screening mammogram is recommended. The pa tient will receive written notification of the results. Approximately 10% of breast cancers are not detected with mammography. A negative mammographic report should not delay biopsy if a clinically suggestive mass is present. Ginger Greenwood M.D. ah/:12/19/2017 17:07:18 Disbursing Officer: Sophie LAGUNAS(R)(M), [facility] letter sent: Normal 1/2 BI-RADS Code: ACR BI-RADS Category 1: Negative
== END | disposition home or self-care (01) ==
LOC: C.MAMM 09:13
PROVIDERS: ATTEND Internal Medicine
DX: Z12.31 Encounter for screening mammogram for malignant neoplasm of breast (principal)

== ENCOUNTER → 2017-12-31 | Outpatient (CLI) | payer OTHER ==
[2017-12-31 16:09] LABS: BLOOD UREA NITROGEN 17 mg/dl (7-18); CALCIUM 9.4 mg/dl (8.5-10.1); CARBON DIOXIDE 30 mmol/L (21-32); CREATININE 0.77 mg/dl (0.60-1.20); GLUCOSE 96 mg/dl (70-99); POTASSIUM 3.7 mmol/L (3.5-5.1); SODIUM 138 mmol/L (136-145)
[2017-12-31 16:20] LABS: CHOLESTEROL 224 mg/dl (0-200); LDL CHOLESTEROL (DIRECT) 148 mg/dl
== END | disposition home or self-care (01) ==
LOC: C.LABSPEC 13:02
PROVIDERS: ATTEND Internal Medicine
DX: I10 Essential (primary) hypertension (principal); E78.5 Hyperlipidemia, unspecified; E03.9 Hypothyroidism, unspecified; E87.6 Hypokalemia

== ENCOUNTER 2025-06-16 05:31 | Inpatient (IN) ==
--- NOTE | 2025-05-23 12:41 | PAT Medication Instructions ---
Medication Instructions Date of Service May 23, 2025 Home Medications Medication Instructions Recorded hydrocodone 5 mg-acetaminophen 325 1 tab PO Q6H PRN pain #20 tabs 07/19/21 mg tablet azelastine 137 mcg (0.1 %) nasal 2 spray intranasal BID PRN nasal 05/11/24 spray congestion #30 mL ipratropium bromide 21 mcg (0.03 2 spray intranasal TID PRN 05/11/24 %) nasal spray postnasal drip #30 mL bimatoprost 0.01 % eye drops (Lumigan) 1 drp ophthalmic (eye) PM calcium 333 mg-vit D3 133 unit-magnesium 133 mg-zinc 5 mg tablet 1 tab PO QAM fluoxetine 20 mg capsule (Prozac) 40 mg PO QAM indapamide 2.5 mg tablet 2.5 mg PO QAM levothyroxine 150 mcg tablet 150 mcg PO 5XWK potassium chloride 10 mEq tablet,extended release 40 meq PO BID atorvastatin 20 mg tablet (Lipitor) 20 mg PO PM dorzolamide-timolol (PF) 2 %-0.5 % eye drops in a dropperette (Cosopt (PF)) 1 drops ophthalmic (eye) BID hydrocodone 5 mg-acetaminophen 325 mg tablet 1 tab PO Q6H PRN azelastine 137 mcg (0.1 %) nasal spray 2 spray intranasal BID PRN ipratropium bromide 21 mcg (0.03 %) nasal spray 2 spray intranasal TID PRN trazodone 50 mg tablet 50 mg PO HS buspirone 5 mg tablet 5 mg PO TID PRN celecoxib 200 mg capsule (Celebrex) 200 mg PO BID PRN fluticasone propionate 50 mcg/actuation nasal spray,suspension 2 spray intranasal DAILY PRN netarsudil 0.02 % eye drops (Rhopressa) 1 drp ophthalmic (eye) PM Continue as directed levothyroxine 150 mcg tablet 150 mcg PO 5XWK fluticasone propionate 50 mcg/actuation nasal spray,suspension 2 spray intranasal DAILY PRN(if needed) ASK your surgeon for instructions celecoxib 200 mg capsule (Celebrex) 200 mg PO BID PRN DO NOT take the morning of surgery calcium 333 mg-vit D3 133 unit-magnesium 133 mg-zinc 5 mg tablet 1 tab PO QAM indapamide 2.5 mg tablet 2.5 mg PO QAM potassium chloride 10 mEq tablet,extended release 40 meq PO BID Take morning of surgery With a small sip of water, OTHERWISE NOTHING TO EAT OR DRINK AFTER MIDNIGHT: fluoxetine 20 mg capsule (Prozac) 40 mg PO QAM dorzolamide-timolol (PF) 2 %-0.5 % eye drops in a dropperette (Cosopt (PF)) 1 drops ophthalmic (eye) BID hydrocodone 5 mg-acetaminophen 325 mg tablet 1 tab PO Q6H PRN(if needed) azelastine 137 mcg (0.1 %) nasal spray 2 spray intranasal BID PRN(if needed) ipratropium bromide 21 mcg (0.03 %) nasal spray 2 spray intranasal TID PRN(if needed) buspirone 5 mg tablet 5 mg PO TID PRN(if needed) Take evening before surgery bimatoprost 0.01 % eye drops (Lumigan) 1 drp ophthalmic (eye) PM potassium chloride 10 mEq tablet,extended release 40 meq PO BID atorvastatin 20 mg tablet (Lipitor) 20 mg PO PM dorzolamide-timolol (PF) 2 %-0.5 % eye drops in a dropperette (Cosopt (PF)) 1 drops ophthalmic (eye) BID hydrocodone 5 mg-acetaminophen 325 mg tablet 1 tab PO Q6H PRN(if needed) azelastine 137 mcg (0.1 %) nasal spray 2 spray intranasal BID PRN(if needed) ipratropium bromide 21 mcg (0.03 %) nasal spray 2 spray intranasal TID PRN(if needed) buspirone 5 mg tablet 5 mg PO TID PRN(if needed) trazodone 50 mg tablet 50 mg PO HS netarsudil 0.02 % eye drops (Rhopressa) 1 drp ophthalmic (eye) PM Other Notes If you have any questions please call us at [phone] or [phone] or [phone] or [phone]
--- NOTE | 2025-05-25 11:53 | Anesthesiology Consultation ---
Date of Service May 25, 2025 Assessment & Plan (1) Encounter for pre-operative examination: Plan - awaiting echocardiogram and surgeon ordered medical clearance, Dr. Chan Yun with surgeon's office advised [facility] - [facility] intubation-per [facility] EMR 07/29/2014: "No view of glottis with DL, easy glidescope intubation" - 4/6 systolic murmur on exam, patient denies any echocardiogram in the past 3 years-will need transthoracic echo prior to surgery, especially for determination on if she is a neuraxial candidate. Patient and surgeon's office aware. Optimization form to be sent to PCP. Chart Review Chart Review: Pending: Refer to Additional Notes / Consult section and Patient seen in Pre Admission Testing Teaching & Discussion Pre-Anesthesia Teaching/Discussion Notes: Instructed NPO after midnight before surgery, except medications with 15 cc of water. Medication instructions provided according to the PAT guidelines. History Surgery Operation Date: 06/16/25 11:00 Proposed Procedures p Right Total Hip Arthroplasty - Brigido Manrique MD Height/Weight Height: 5 ft 4 in Weight: 85.275 kg Allergies Allergy/AdvReac Type Severity Reaction Status Date / Time Penicillins Allergy Intermediate abdominal Verified 05/25/25 11:57 pain, hives adhesive tape AdvReac Intermediate skin Verified 05/23/25 11:56 blisters brimonidine [From Simbrinza] AdvReac Intermediate eye Verified 05/25/25 11:57 soreness/redness brinzolamide [From Simbrinza] AdvReac Intermediate eye Verified 05/25/25 11:57 soreness/redness egg AdvReac Intermediate nausea, Verified 05/25/25 11:57 vomiting Medications Home Medications Medication Instructions Recorded Confirmed Last Taken bimatoprost 0.01 % eye drops 1 drp ophthalmic (eye) PM 04/05/19 05/23/25 07/02/22 (Tarik) calcium 333 mg-vit D3 133 1 tab PO QAM 04/05/19 05/23/25 07/01/22 unit-magnesium 133 mg-zinc 5 mg tablet fluoxetine 20 mg capsule (Prozac) 40 mg PO QAM 04/05/19 05/23/25 07/03/22 08:00 indapamide 2.5 mg tablet 2.5 mg PO QAM 04/05/19 05/23/25 07/01/22 levothyroxine 150 mcg tablet 150 mcg PO 5XWK 04/05/19 05/23/25 07/02/22 potassium chloride 10 mEq 40 meq PO BID 04/05/19 05/23/25 07/01/22 tablet,extended release atorvastatin 20 mg tablet (Lipitor) 20 mg PO PM 06/16/19 05/23/25 07/01/22 dorzolamide-timolol (PF) 2 %-0.5 % 1 drops ophthalmic (eye) BID 06/16/19 05/23/25 07/02/22 eye drops in a dropperette (Cosopt (PF)) hydrocodone 5 mg-acetaminophen 325 1 tab PO Q6H PRN pain #20 tabs 07/19/21 05/23/25 07/02/22 mg tablet azelastine 137 mcg (0.1 %) nasal 2 spray intranasal BID PRN nasal 05/11/24 05/23/25 Unknown spray congestion #30 mL ipratropium bromide 21 mcg (0.03 2 spray intranasal TID PRN 05/11/24 05/23/25 Unknown %) nasal spray postnasal drip #30 mL trazodone 50 mg tablet 50 mg PO HS 05/11/24 05/23/25 Unknown buspirone 5 mg tablet 5 mg PO TID PRN Anxiety 05/23/25 05/23/25 Unknown celecoxib 200 mg capsule (Celebrex) 200 mg PO BID PRN Pain 05/23/25 05/23/25 Unknown fluticasone propionate 50 2 spray intranasal DAILY PRN 05/23/25 05/23/25 Unknown mcg/actuation nasal Congestion spray,suspension netarsudil 0.02 % eye drops 1 drp ophthalmic (eye) PM 05/23/25 05/23/25 Unknown (Rhopressa) Past Medical History Medical History Anxiety and depression Bradycardia monitored by PCP, improving off metoprolol per 12/2024 note Cardiac murmur chronic per patient-denies any recent echo Chronic cough Difficult intubation per [facility] EMR 07/29/2014: "No view of glottis with DL, easy glidescope intubation" Environmental allergies Glaucoma History of endometrial cancer (~2013) s/p sx, chemo + radiation History of malignant neoplasm of fallopian tube in adulthood (~2013) s/p sx, chemo + radiation Hyperlipidemia Hypertension controlled, stable per pt Hypothyroidism Lumbar spondylosis Osteoarthritis TMJ click pt denies locking Patient denies h/o stroke, seizures, heart attack, heart failure, DM, blood clots/DVTs or blood transfusions. Exercise / Class Metabolic Activity III < 4 Walking/Shop/Light housework (denies chest discomfort or shortness of breath with usual activities, is not walking up flight of stairs due to hip dysfunction) Past Family History Family History Other No family history of adverse response to anesthesia Past Surgical History Surgical History Difficult airway for intubation [facility]>told for hysterectomy 2013 History of appendectomy History of carpal tunnel release left History of cataract surgery right/left History of cholecystectomy History of colonoscopy History of hand surgery left>removed joint at thumb History of hip surgery rt hip>"bursa sac removed" History of left knee replacement History of tonsillectomy History of tooth extraction History of total abdominal hysterectomy and bilateral salpingo-oophorectomy Status post trigger finger release left Past Anesthesia History Difficult Airway (per [facility] EMR 07/29/2014: "No view of glottis with DL, easy glidescope intubation") and No Family Hx of Anesthesia Complications History of PONV History of PONV (pt states has had scop patch in past with benefit without adverse effects) and Hx of Motion Sickness Social History Smoking Status: Former smoker tobacco type: cigarettes Smoking cigarettes per day: 45+ years ago Do You Dip or Chew Tobacco: No Hx Alcohol Use: No substance use type: does not use Review of Systems Snoring, denies witnessed apneas. Patient denies chest pain, shortness of breath, dyspnea on exertion, reflux, fever, chills, cough, wheezing, dizziness, near syncope, or palpitations. Physical Exam Vital Signs Vitals BP 134/61 P 63 TEMP 98.7 SP02 95% on RA RESP 18 Physical Patient resting comfortably in chair in no acute distress, alert and oriented, responding appropriately throughout visit Full cervical extension range of motion without pain TMD 3.5 finger breadths Mallampati Score 2 Dentition: several caps/crowns, denies chipped or loose teeth, implants or bridges Lungs: normal respiratory effort. Good air movement, clear throughout to aus cultation, no adventitious breath sounds Cardiac: regular rate and rhythm, 4/6 systolic murmur, no gallops or rubs Carotid arteries: negative bruit bilat Lab Results Anesthesia Preop Results Results Anesthesia Widget: WBC 6.77 K/ul (4.8-10.8) 05/25/25 Hgb 12.8 g/dl (12.0-16.0) 05/25/25 Hct 37.5 % (37.0-47.0) 05/25/25 Plt 248 K/uL (130-400) 05/25/25 Na 138 mmol/L (136-145) 05/25/25 K 3.7 mmol/L (3.5-5.1) 05/25/25 Cl 103 mmol/L (98-107) 05/25/25 CO2 29 mmol/L (21-32) 05/25/25 BUN 15 mg/dl (6-23) 05/25/25 Creat 0.57 mg/dl (0.6-1.2) L 05/25/25 Glucose Level 83 mg/dl (70-99(Fasting)) 05/25/25 PT 10.6 Seconds (9.0-12.0) 05/25/25 PTT 28 Seconds (21-31) 05/25/25 INR 1.0 (0.9-1.1) 05/25/25 Urine Color Yellow 05/25/25 Urine Appearance Clear (Clear) 05/25/25 Urine pH 7.0 (4.5-7.5) 05/25/25 Urine Specific [place]han 1.016 (1.000-1.030) 05/25/25 Urine Protein Negative (Negative) 05/25/25 Urine Glucose (UA) Negative (Negative) 05/25/25 Urine Ketones Negative (Negative) 05/25/25 Urine Blood Negative (Negative) 05/25/25 Urine Nitrite Negative (Negative) 05/25/25 Urine Bilirubin Negative (Negative) 05/25/25 Urine Urobilinogen Negative (Negative) 05/25/25 Urine Leukocyte Esterase Negative (Negative) 05/25/25 Blood Type B Positive 05/25/25 Antibody Screen NEGATIVE 05/25/25 Testing Electrocardiogram Date: 05/25/25 Suspect V2/V3 lead reversal, rate 54 bpm Sinus bradycardia with sinus arrhythmia Minimal voltage criteria for LVH, may be normal variant Chest X-Ray Date: 05/25/25 Heart size and pulmonary vasculature are normal. No consolidation or pleural effusion. Stable mild scoliosis. IMPRESSION: No acute findings.
[2025-06-16] MEDS: LR 500ML BOLUS, THEN 15ML/HR IV SCH (06:05)
[2025-06-16] MEDS: LR 60ML/HR IV SCH (06:05)
[2025-06-16] MEDS: ACETAMINOPHEN 500 MG TAB PO SCH (06:09)
[2025-06-16] MEDS: CeleBREX 200 MG CAP PO SCH (06:10)
[2025-06-16] MEDS: FAMOTIDINE 20 MG TAB PO SCH (06:10)
[2025-06-16] MEDS: dexAMETHasone**PF** 10 MG/ML VIAL IV SCH (06:10)
[2025-06-16] MEDS ORDERED: ATROPINE SULFATE 0.1 MG/ML 10ML SYR IV PRN (06:32)
[2025-06-16] MEDS ORDERED: BUPIVACAINE 0.5 % 5 MG/1 ML PF 10ML VIAL ONE (06:32)
[2025-06-16] MEDS ORDERED: ONDANSETRON INJ 2 MG/ML 2 ML VIAL IV PRN ×2 (06:32→08:54)
--- NOTE | 2025-06-16 06:35 | History & Physical Bridge Note ---
Date of Service June 16, 2025 History & Physical Bridge Note I have examined the patient, reviewed the History & Physical and in the interval since the performance of the History & Physical I have noted the following changes of clinical significance: no changes noted
[2025-06-16] MEDS ORDERED: MIDAZOLAM HCL 1 MG/ML 2ML VIAL ONE (06:39)
[2025-06-16] MEDS ORDERED: PROPOFOL IV EMULSION 10 MG/ML 20 ML VIAL IV ONE (06:42)
[2025-06-16] MEDS ORDERED: Nursing to Pharmacy Communication SCH (06:45)
[2025-06-16] MEDS: TRANEXAMIC ACID 1,000 MG **IV Pre-op IV SCH (06:46)
[2025-06-16] MEDS ORDERED: ONDANSETRON INJ 2 MG/ML 2 ML VIAL ONE (07:11)
[2025-06-16] MEDS: ORTHO JOINT ANESTHETIC ONE (07:32)
[2025-06-16] MEDS: ROPIV 0.5% 246mg, Ketorolac 30mg, EPINEPHrine 0.5mg in NSS INFIL SCH (07:48)
--- NOTE | 2025-06-16 08:50 | Operative Report ---
Post Operative Report Pre & Post Diagnosis Operation Date: 06/16/25 07:00 Pre-Op Diagnosis: Right Hip Osteoarthritis Post-Op Diagnosis: Right Hip Osteoarthritis I identified the patient and participated in the time-out.: Yes Procedure Operation Date: 06/16/25 07:00 Actual Procedures p Right Total Hip Arthroplasty, Uncemented(Right) - Brigido Manrique MD Surgeon Brigido Manrique MD Punch Finisher Johnny Reyes PAJim Estimated Blood Loss 100 Findings Consistent with Post-Op Diagnosis Specimens femoral head Description of Procedure I was present during the entire case assisting with positioning, prepping, draping, wound retraction, wound closure, dressing and abduction pillow placement. No fellow present. Please see Dr. Manrique operative note for specifics of the case. I attest to the content of the Intraoperative Record and any orders documented therein. Any exceptions are noted below.
[2025-06-16] MEDS ORDERED: ALUMINUM/MAGNESIUM SUSP 30 ML UDC PO PRN (08:54)
[2025-06-16] MEDS ORDERED: METOCLOPRAMIDE HCL INJ 5 MG/ML 2 ML VIAL IV PRN (08:54)
[2025-06-16] MEDS ORDERED: diphenhydrAMINE 50 MG/ML VIAL IV PRN (08:54)
[2025-06-16] MEDS ORDERED: NALOXONE HCL 0.4 MG/1 ML VIAL/CARP IV PRN (08:54)
[2025-06-16] MEDS ORDERED: MAGNESIUM HYDROXIDE SUSP 30 ML UDC PO PRN (08:54)
--- NOTE | 2025-06-16 08:56 | Operative Report ---
Post Operative Report Pre & Post Diagnosis Operation Date: 06/16/25 07:00 Pre-Op Diagnosis: Right Hip Osteoarthritis Post-Op Diagnosis: Right Hip Osteoarthritis I identified the patient and participated in the time-out.: Yes Procedure Operation Date: 06/16/25 07:00 Actual Procedures p Right Total Hip Arthroplasty, Uncemented(Right) 22 modifier should be added due to the increased time and difficulty required from the patient having had previous surgery to her hip, morbid obesity with BMI 33 and thick subcutaneous envelope requiring a longer incision and additional time for dissection and wound closure- Brigido Manrique MD Surgeon Brigido Manrique MD Grinding Wheel [employer]er AUSTIN Reyes PA-C. No resident or fellow was available to assist Estimated Blood Loss 100 Findings Consistent with Post-Op Diagnosis Specimens Right femoral head Anesthesia Type Spinal MAC Complications none Disposition Disposition: Recovery Room Indications 75-year-old female, with right hip pain refractory to conservative management. She has a history of an open trochanteric bursectomy in her right hip. Incision from this is well-healed with no evidence of infection. X-rays demonstrate joint space narrowing, subchondral sclerosis, and marginal osteophytes. I had a long discussion with her about her diagnosis and treatment options. Surgery is indicated to improve pain and promote function. I had a long discussion with her about the risks and benefits of surgery, alternatives to surgery, and expected outcomes. She understands that she is at elevated risk for complications secondary to previous incision as well as her elevated body mass index. After reviewing all of her options she elected to proceed with surgery. All questions were answered. Informed consent was signed. Description of Procedure Patient was identified in the preoperative holding area where the surgical site, right hip, was marked. A spinal anesthetic was placed, then the patient was brought back to the main operating room, placed in the operating table and moved into the lateral decubitus position. Axillary roll was placed. All bony prominences were padded. Perioperative antibiotics and tranexamic acid 1 gram IV were administered. The operative extremity was prepped and draped in the normal sterile fashion. Her previous incision was marked out on the skin using a skin marker. Prior to incision a multidisciplinary timeout was called. All in the room were in agreement. We began by making an incision for a posterior approach to the hip to include her previous laterally based incision and extending for a distance of approximately 22 cm. This is approximately 4 to 6 cm longer than a typical incision secondary to patient's elevated body mass index and thick subcutaneous tissues. I dissected down through subcutaneous tissues to the level of the fascia. Additional time was required for dissecting through the scar at her previous surgical site. The fascia was incised in line with the incision. Charnley bow was placed. There was some scarring over the trochanteric bursa from her previous surgery which was released. Fatty tissue was reflected posteriorly off the back of the greater trochanter to expose the piriformis and short external rotators of the hip. Quadratus femoris was taken off the femur subperiosteally. The piriformis and short external rotators were dissected off the posterior aspect of the hip. A box cut was made in the capsule. Inferior hip capsule was released off the femur. The femoral head was dislocated. The femoral neck cut was made at our preoperative template. The acetabulum was then exposed. The labrum was sharply excised. Contents of the cotyloid fossa were removed with electrocautery. We then began reaming at a size 8 mm less than our preoper ative template. We reamed up by [address] the way up to a size 50 mm cup. This gave us good bleeding cancellus bone circumferentially. The acetabulum was then irrigated out and dried. The real [place] Gription cup was then impacted down into position with 45 degrees of lateral opening and 25 degrees of anteversion. Two cancellous bone screws were placed into the pelvis. Excellent fixation was obtained. A trial liner for a 32 mm femoral head was then placed. Anterior acetabular osteophytes were removed with an osteotome and rongeur. Next we turned our attention to the femur. The lateral neck was removed with a box osteotome. Intramedullary guide was used to establish the intramedullary canal. We then broached all the way up to a size 5. She templated to a standard offset neck, however was worried about instability given her body mass index and so I elected to begin trialing with a high offset neck and a +1 head. Hip was reduced. Leg lengths were symmetric. The hip was stable in extension and external rotation, and stable in the sleeper position. At 90 degrees of hip flexion the hip could be internally rotated 70 degrees before levering out of the cup. I was very happy with the stability exam. Therefore the hip was dislocated and the femoral trial was removed. The acetabulum was re-exposed, and the trial liner was removed. [place] hole eliminator screw was placed. An Altrx polyethylene liner for a 32 mm femoral head was then impacted into the shell. The locking mechanism was checked to ensure that it had engaged which it had. The femur was re-exposed. The femoral canal was irrigated and dried. The real Actis femoral stem was opened up. This was impacted down into position. The femoral head was opened up and gently impacted down onto the trunnion. The hip was atraumatically reduced. Another 1 gram of IV tranexamic acid was started prior to closure. The wound was irrigated out with sterile Betadine solution. The periarticular injection cocktail was then placed. The short external rotators, piriformis, and posterior capsule were repaired through drill holes in the greater trochanter using #2 Vicryl. The fascia was run with a looped #1 PDS. The subcutaneous layer was closed with two layers of running #1 PDS. The dermal layer was closed with 2-0 Vicryl. Zip line was used for the skin followed by a Silverlon dressing. As stated above, additional time was required for wound closure secondary to the thick subcutaneous tissues and additional length of the incision. A compressive dressing was then placed. The patient was then rolled supine. Leg lengths were rechecked and were symmetric. An abduction pillow was placed. Sedation was lifted and the patient was transferred to the recovery room in stable condition. Summary of implants: Depuy [place] Gription Acetabular Shell Sector Cup, 50 mm outer diameter 2 [place] Cancellous bone screws, 6.5 x 25 and 30 respectively mm [place] hole eliminator [place] Altrx Polyethylene Acetabular Liner, Neutral, with a 32 mm inner diameter DePuy Actis collared cementless Femoral stem, 12/14 taper, size 5 high offset 32 mm ceramic femoral head with +1 offset Postoperative course: Patient will be admitted overnight from the recovery room. Patient will be weightbearing as tolerated with posterior hip precautions. Aspirin for DVT prophylaxis I attest to the content of the Intraoperative Record and any orders documented therein. Any exceptions are noted below.
--- NOTE | 2025-06-16 09:18 | XRay Report ---
XR pelvis 1-2V routine CLINICAL HISTORY: In PACU - Post Surgical COMPARISON: 05/25/2025 FINDINGS: Right hip prosthesis shows no hardware complication. There is expected soft tissue gas. IMPRESSION: Unremarkable postoperative exam. ACT 112: Negative or not required by law. Electronically signed by: Adam King M.D. 06/16/2025 9:17 AM
[2025-06-16] MEDS ORDERED: FLUTICASONE PROPIONATE NA SPR 16 GM BTL PRN (11:58)
[2025-06-16] MEDS ORDERED: [UNRECOGNIZED DRUG - OTHER] PO SCH (11:58)
[2025-06-16] MEDS ORDERED: CeleBREX 200 MG CAP PO PRN (11:58)
[2025-06-16] MEDS ORDERED: AZELASTINE HCL 0.1% NASAL 200 SPRAYS/27,400 MCG BTL PRN (11:58)
[2025-06-16] MEDS ORDERED: busPIRone 5 MG TAB PO PRN (11:58)
[2025-06-16] MEDS ORDERED: IPRATROPIUM BROMIDE NASAL SPRAY 0.03% 30 ML PRN (11:58)
[2025-06-16] MEDS: KETOROLAC TROMETHAMINE 15 MG/ML VIAL IV SCH (12:57)
[2025-06-16] MEDS: SODIUM CHLORIDE 0.9% 1,000 ML IV SCH (13:04)
[2025-06-16] MEDS: INDAPAMIDE 1.25 MG TAB PO SCH (14:05)
[2025-06-16] MEDS: POTASSIUM CHLORIDE 10 MEQ TABCR PO SCH (14:05)
[2025-06-16] MEDS: MULTIVITAMIN TAB PO SCH (14:05)
[2025-06-16] MEDS: DORZOLAMIDE/TIMOLOL 22.3/6.8MG/ML 10 ML BTL OP SCH (14:05)
[2025-06-16] MEDS: HYDROCODONE/ACETAMOPHEN 5/325MG TAB PO PRN (14:12)
[2025-06-16] MEDS: Scopolamine CHECK PATCH PLACEMENT SCH (15:43)
[2025-06-16] MEDS: ACETAMINOPHEN 500 MG TAB PO PRN (15:43)
--- NOTE | 2025-06-16 16:01 | Anesthesiology Progress Note ---
Date of Service June 16, 2025 Anesthesia Post Procedure Vital Signs Vital Signs: Temp Pulse Pulse Resp BP BP Pulse Ox 06/16/25 15:48 36.6 C 56 L 16 120/75 97 06/16/25 14:17 36.5 C 56 L 18 105/66 94 06/16/25 13:26 36.2 C L 61 16 112/62 98 06/16/25 12:52 36.3 C L 54 L 16 113/67 95 06/16/25 12:00 36.4 C L 52 L 16 103/62 96 06/16/25 11:30 36.4 C L 52 L 17 109/61 100 06/16/25 11:00 50 L 17 108/62 100 06/16/25 10:45 50 L 16 120/68 100 06/16/25 10:30 49 L 16 113/71 99 06/16/25 10:15 52 L 16 135/70 100 06/16/25 10:00 48 L 15 144/66 H 99 06/16/25 09:50 47 L 15 147/68 H 100 06/16/25 09:40 36.1 C L 44 L 17 147/71 H 100 06/16/25 09:30 43 L 17 149/68 H 100 06/16/25 09:20 48 L 19 134/64 100 06/16/25 09:10 67 19 120/60 95 06/16/25 09:00 40 L 16 115/63 100 06/16/25 08:50 36.0 C L 45 L 16 124/61 99 06/16/25 05:40 06/16/25 05:40 36.6 C 57 L 18 165/71 H 97 O2 Del Method O2 Flow Rate 06/16/25 15:48 Room Air 06/16/25 14:17 Room Air 06/16/25 13:26 Room Air 06/16/25 12:52 Room Air 06/16/25 12:00 Room Air 06/16/25 11:30 Nasal Cannula 2 06/16/25 11:00 Nasal Cannula 2 06/16/25 10:45 Nasal Cannula 2 06/16/25 10:30 Nasal Cannula 2 06/16/25 10:15 Nasal Cannula 2 06/16/25 10:00 Nasal Cannula 2 06/16/25 09:50 Nasal Cannula 2 06/16/25 09:40 Nasal Cannula 2 06/16/25 09:30 Nasal Cannula 2 06/16/25 09:20 Nasal Cannula 2 06/16/25 09:10 Nasal Cannula 2 06/16/25 09:00 Room Air 06/16/25 08:50 Room Air 06/16/25 05:40 Room Air 06/16/25 05:40 Room Air Pain Intensity Right Hip: Pain Intensity: 6 Notes Mental Status: alert / awake / arousable Patient Amnestic to Procedure: Yes Nausea / Vomiting: adequately controlled Pain: adequately controlled Airway Patency, RR, SpO2: stable & adequate BP & HR: stable & adequate Hydration State: stable & adequate Neuraxial Anesthesia: was administered and sensory block is resolving Anesthetic Complications: no major complications apparent
[2025-06-16] MEDS: DOCUSATE SODIUM 100 MG CAP PO SCH (20:36)
[2025-06-16] MEDS: SENNA 8.6 MG TAB PO SCH (20:36)
[2025-06-16] MEDS: BIMATOPROST 0.01% OP SOLN 2.5 ML BTL OP SCH (20:37)
[2025-06-16] MEDS: ATORVASTATIN 20 MG TAB PO SCH (20:37)
[2025-06-17 04:52] VITALS: RESP 16
[2025-06-17] MEDS: LEVOTHYROXINE SODIUM 150 MCG TABLET PO SCH (06:06)
[2025-06-17 06:57] LABS: Hematocrit (blood only) 32.6 % (37.0-47.0); Hemoglobin 11.0 g/dl (12.0-16.0); Immature Granulocytes # (auto) 0.08 K/uL (0.01-0.20); Immature Granulocytes % (auto) 0.5 %; Mean Corpuscular Hemoglobin 30.2 pg (25.0-34.0); Mean Corpuscular Volume 89.6 fL (80.0-100.0); Platelet Count 226 K/uL (130-400); RDW Standard Deviation 42.5 fL (36.4-46.3); Red Blood Count 3.64 M/uL (4.20-5.40); White Blood Count 16.82 K/ul (4.8-10.8)
[2025-06-17 07:20] LABS: Anion Gap 4.0 (3-11); Blood Urea Nitrogen 12.0 mg/dl (6-23); Calcium 8.6 mg/dl (8.6-10.3); Carbon Dioxide 31.0 mmol/L (21-32); Chloride 104.0 mmol/L (98-107); Creatinine Clr Calc Pharmacy 44.5 ml/min; Glucose 114.0 mg/dl (70-99(Fasting)); Potassium 3.8 mmol/L (3.5-5.1); Sodium 139.0 mmol/L (136-145)
[2025-06-17] MEDS: dexAMETHasone 10 MG in SYRINGE 0 ML IV SCH (07:37)
[2025-06-17 08:15] VITALS: O2SAT 94
[2025-06-17] MEDS: ASPIRIN 81 MG ECTAB PO SCH (09:40)
--- NOTE | 2025-06-17 10:37 | Orthopedic Progress Note ---
Date of Service June 17, 2025 Assessment & Plan (1) S/P total hip arthroplasty: Plan: Total hip precautions reviewed Weightbearing as tolerated with walker assistance PT/OT Ice with easy wrap Keep Silverlon dressing in place until follow-up Pain control with p.o. medication DVT prophylaxis with SUSHILA stockings and aspirin Plan is to discharge home today with in-home physical therapy for the first 2 weeks Abduction pillow use x 6 weeks Follow-up at [facility] orthopedics as previously scheduled With questions contact our clinic at [phone] Admission and Anticipated Discharge Date Admission Date: June 16, 2025 Subjective This 75-year-old female is day 1 status post right total hip arthroplasty. Patient states she is doing very well. She is already dressed and ready to go home. She states she was able to complete PT and OT's protocol this morning. She is scheduled to begin in-home physical therapy this weekend. She states that her pain is well-controlled with the p.o. pain medication she was given. Currently she denies chest pain, shortness of breath, fever, chills, sweats, nausea, vomiting, diarrhea, difficulty voiding or numbness or tingling in her right lower extremity. Review of Systems Review of Systems: All systems reviewed & are unremarkable except as noted in Subjective Physical Exam Physical Exam: Left hip: Outer dressing was removed. Silverlon is clean dry and intact and left in place. There was a slight lifting of part of the bandage that I reinforced with a Tegaderm. Patient was able to perform an active straight leg raise test. She was able to actively dorsi and plantarflex her foot. She had no discomfort with logroll testing. She tolerated passive hip flexion to 80 degrees and only felt a slight pulling sensation with light passive internal rotation. She had no discomfort with external rotation. Her quad strength is 3+ out of 5. She was able to detect light sensation to touch in the pads of all digits. She was neurovascularly intact. Results & Data Vital Signs (Past 12 Hours) Vital Signs Temp Pulse Pulse Resp BP Pulse Ox O2 Del Method 06/17/25 07:48 36.6 C 51 L 16 104/66 94 Room Air 06/17/25 03:05 36.4 C L 54 L 16 129/68 95 Room Air 06/16/25 23:00 36.8 C 90 18 109/66 96 Room Air Diagnostic Findings Laboratory Results WBC 16.82 K/ul (4.8-10.8) H 06/17/25 06:22 RBC 3.64 M/uL (4.20-5.40) L 06/17/25 06:22 Hgb 11.0 g/dl (12.0-16.0) L 06/17/25 06:22 Hct 32.6 % (37.0-47.0) L 06/17/25 06:22 MCV 89.6 fL (80.0-100.0) 06/17/25 06:22 MCH 30.2 pg (25.0-34.0) 06/17/25 06: MCHC 33.7 g/dL (32.0-36.0) 06/17/25 06: RDW Std Deviation 42.5 fL (36.4-46.3) 06/17/25 06: RDW Coeff of Dejah 12.8 % (11.5-14.5) 06/17/25 06:22 Plt Count 226 K/uL (130-400) 06/17/25 06:22 MPV 11.3 fL (9.4-12.4) 06/17/25 06:22 Immature Gran % (Auto) 0.5 % 06/17/25 06: Neut % (Auto) 85.4 % 06/17/25 06:22 Lymph % (Auto) 5.8 % 06/17/25 06:22 [place] % (Auto) 8.1 % 06/17/25 06:22 Eos % (Auto) 0.0 % 06/17/25 06: Baso % (Auto) 0.2 % 06/17/25 06:22 Neut # (Auto) 14.37 K/uL (1.40-6.50) H 06/17/25 06:22 Lymph # (Auto) 0.98 K/uL (1.20-3.40) L 06/17/25 06:22 [place] # (Auto) 1.36 K/uL (0.11-0.59) H 06/17/25 06:22 Eos # (Auto) 0.00 K/uL (0.00-0.50) 06/17/25 06:22 Baso # (Auto) 0.03 K/uL (0.00-0.20) 06/17/25 06:22 Immature Gran # (Auto) 0.08 K/uL (0.01-0.20) 06/17/25 06:22 Sodium 139 mmol/L (136-145) 06/17/25 06:22 Potassium 3.8 mmol/L (3.5-5.1) 06/17/25 06:22 Chloride 104 mmol/L (98-107) 06/17/25 06:22 Carbon Dioxide 31 mmol/L (21-32) 06/17/25 06:22 Anion Gap 4 (3-11) 06/17/25 06:22 BUN 12 mg/dl (6-23) 06/17/25 06:22 Creatinine 0.58 mg/dl (0.6-1.2) L 06/17/25 06:22 Est Cr Clr Drug Dosing 44.5 ml/min 06/17/25 06:22 eGFR 94.90 06/17/25 06:22 BUN/Creatinine Ratio 20.7 (10-20) H 06/17/25 06:22 Glucose 114 mg/dl (70-99(Fasting)) H 06/17/25 06:22 Calcium 8.6 mg/dl (8.6-10.3) 06/17/25 06:22 Impressions Pelvis X-Ray 06/16/25 08:54 XR pelvis 1-2V routine CLINICAL HISTORY: In PACU - Post Surgical COMPARISON: 05/25/2025 FINDINGS: Right hip prosthesis shows no hardware complication. There is expected soft tissue gas. IMPRESSION: Unremarkable postoperative exam. ACT 112: Negative or not required by law. Electronically signed by: Adam King M.D. 06/16/2025 9:17 AM
[2025-06-17 11:01] VITALS: BP 132/71; PULSE 58; TEMP 97.5
--- NOTE | 2025-06-17 11:02 | Discharge Summary ---
Date of Service June 17, 2025 Principal Diagnosis Right hip osteoarthritis Discharge Exam Left hip: Outer dressing was removed. Silverlon is clean dry and intact and left in place. There was a slight lifting of part of the bandage that I reinforced with a Tegaderm. Patient was able to perform an active straight leg raise test. She was able to actively dorsi and plantarflex her foot. She had no discomfort with logroll testing. She tolerated passive hip flexion to 80 degrees and only felt a slight pulling sensation with light passive internal rotation. She had no discomfort with external rotation. Her quad strength is 3+ out of 5. She was able to detect light sensation to touch in the pads of all digits. She was neurovascularly intact. Discharge Data Allergies Allergy/AdvReac Type Severity Reaction Status Date / Time Penicillins Allergy Intermediate abdominal Verified 06/16/25 05:35 pain, hives adhesive tape AdvReac Intermediate skin Verified 06/16/25 05:35 blisters brimonidine [From Simbrinza] AdvReac Intermediate eye Verified 06/16/25 05:35 soreness/redness brinzolamide [From Simbrinza] AdvReac Intermediate eye Verified 06/16/25 05:35 soreness/redness egg AdvReac Intermediate nausea, Verified 06/16/25 05:35 vomiting Procedures Performed Operation Date: 06/16/25 07:00 Actual Procedures p Right Total Hip Arthroplasty, Uncemented(Right) - Brigido Manrique MD Hospital Course (1) S/P total hip arthroplasty: Patient had an uneventful overnight stay following right total hip arthroplasty. She is very pleased with the results of the surgery. She has completed PT and OT and passed her protocol. She is scheduled to begin in-home physical therapy later this weekend. Total hip precautions reviewed Weightbearing as tolerated with walker assistance PT/OT Ice with easy wrap Keep Silverlon dressing in place until follow-up Pain control with p.o. medication DVT prophylaxis with SUSHILA stockings and aspirin Plan is to discharge home today with in-home physical therapy for the first 2 weeks Abduction pillow use x 6 weeks Follow-up at [facility] orthopedics as previously scheduled With questions contact our clinic at [phone] Total Time Total Time Spent Total Time Spent (In Minutes): 25 mins Discharge Plan Discharge Items Patient Disposition: Home - Home Health Services Reason For Visit: Right Hip Osteoarthritis Discharge Diagnosis: s/p Right total hip arthroplasty Activity: As commented below Lifting: None Bathing: Keep incision dry Bathing Comment: May shower tomorrow Sexual Activity: Wait until after follow-up appointment Exercise/Sports: Wait until after follow-up appointment Driving/Machine Use: No driving until cleared by paid search specialist Weightbearing: Right weightbearing Weightbearing Comment: as tolerated with walker assistance Non-emergency contact: Surgeon Call non-emergency contact if: you have any medication questions, your pain is not controlled, your temperature is above 101.5 and your wound has increased drainage Follow-up/Referrals: Uday Leblanc, [Primary Care Provider] - Diet: Regular Addtl Attending Provider Instructions: Post-operative Instructions Dear Patient and Family/Friends, Before you are discharged from the hospital, it is important to know what to expect when you get home after surgery. To that end, we have created this sheet of discharge instructions which covers many commonly asked questions. Make sure you go through this sheet in its entirety with your nurse before you are discharged. Please note that we will go over the specifics of your surgery and recovery when you return for your first post-operative visit. Sincerely, Dr. Manrique Medications 1. Oxycodone 5 mg: Take 1 to 2 tablets every 4-6 hours as needed for postoperative pain control. A prescription for this medication will be sent to your pharmacy. 2. Celebrex 200 mg: Increase your daily Celebrex to twice daily for 30 days postoperatively for pain and inflammation relief. If you need additional refills contact our clinic. 3. Aspirin 81 mg: Take 1 tablet twice daily for the first 30 days postoperatively for blood clot prevention. Please purchase this medication. 4. Extra strength Tylenol 500 mg: Take 2 tablets every 6-8 hours as needed for additional supplemental pain control. Please purchase the medication. Pain Expect to be in a fair amount of pain after surgery. Remember, our goal is not to eliminate your pain, but to make it tolerable. It is a good idea to stay ahead of your pain by taking the medications you were prescribed once you get home. Typically, the pain starts improving 3-7 days after surgery. You should start weaning off the narcotic pain medication (oxycodone, hydrocodone, hydromorphone, morphine) as soon as your pain improves. Please call our office if your pain is not adequately controlled. Ice Ice your operative site at least 5 times a day for 15-30 minutes at a time. Make sure you have a thin cloth between the ice or cooling unit and your skin to prevent wadsworth bite. This is especially important if you received a nerve block. Continue icing your operative site for the first 5-7 days after surgery, then as needed. Diet/Nausea/Vomiting Start by drinking clear liquids and eating crackers. If you can tolerate this, then you may resume your normal diet. If you feel nauseated or vomit, take Zofran/ondansetron (if prescribed). Please call our office if you have intractable nausea or vomiting, or, if after hours, you may go to the Emergency Room for help. Constipation Constipation is a common side effect of narcotic pain medication. If you have not had a bowel movement within 2 days after surgery, we recommend purchasing an over the counter laxative such as Milk of Magnesia, Dulcolax, or Miralax from a local pharmacy, and taking it as instructed. Call our clinic if any questions. Nerve block The anesthesia team sometimes places a nerve block to help with post-operative pain control. This results in significant numbness and inability to move the extremity. The nerve block usually wears off in 8-12 hours, but sometimes can last up to 24 hours. Please call our office if you are still unable to move your extremity after 24 hours, unless you received a pain pump to take home. Nerve blocks typically wear off quickly, so start taking pain medication as soon as you start feeling soreness near your surgical site. Weight bearing and Range of Motion. Do not bear any weight through your operative extremity immediately after abran jose j. If you had upper extremity surgery, do not lift anything with that arm. If you are in a knee brace, keep it locked in place until your follow-up. We will discuss your weight bearing, range of motion, and lifting restrictions in detail at your first post-operative appointment. Continuous Passive Motion (CPM) Machine If you were prescribed a CPM machine, it will start after your first post-o perative appointment, at which time we will give you instructions on the range of motion settings and duration of treatment Physical therapy You will be given a prescription for physical therapy or occupational therapy at your first post-operative appointment. Typically, patients start therapy within 1 week of surgery Wound care and showering We will inspect your wound at your first post-operative visit, and may do a dressing change at that time. Most patients will be in a water-proof dressing that is removed 14 days after surgery. It is normal to see some dried blood on the dressing. Do not remove your dressing, paper strips or sutures yourself unless you are given permission. Showering is allowed the day after surgery. Do not scrub or remove any dressings. The wound should not be submerged underwater (i.e. in a bathtub or pool) until 4 weeks after surgery SUSHILA stockings If you were given white stockings, these are to be worn at all times except to shower (on both legs) for the first 2 weeks after surgery. Driving You may not drive while taking narcotic pain medication or while in a cast, splint, sling or brace. You, the patient, need to make the final determination about when you are safe to drive, however, the earliest you may consider driving after surgery is below: Hand/Wrist/Elbow Surgery: 3 days Shoulder Surgery: 2 weeks Hip,/Knee/Ankle Surgery: 4 weeks Fracture repair: 6 weeks Return to Work Your return to work depends on what surgery was done and what type of work you do. Please bring any paperwork your employer needs completed to your first post-operative visit. Also, bring a description of your job duties, as this helps us to understand what risks you may face at work. Travel Avoid long distance travel (greater than 1 hour) in airplanes and cars for the first 6 weeks after surgery. If you must travel, you need to have a Doppler ultrasound done before you travel to rule out a blood clot in your legs. Follow-up You should have a follow-up appointment already scheduled 1-2 days after surgery. If not, please contact our office to make this appointment before you leave the hospital. When to call the office It is normal to have swelling and bruising in the limb that was operated on. This will improve with time. It is also normal to have fevers for the first 2 days after surgery. Reasons you should call your doctor include: Uncontrolled pain; Nausea, vomiting, or constipation that does not improve with medication; Fevers over 101.5, chills, sweats; Drainage or bleeding from the wound; Foul odor; Spreading areas of redness; Any other concerns. Contact Information Please call Dr. Manrique's office at [phone] with any concerns. Pending Studies at Discharge: No Stand-Alone Forms: My [facility] Medications and DC Order Prescriptions: New aspirin 81 mg Tablet,Delayed Release (Dr/Ec) 81 mg PO BID 30 Days Qty: 60 0RF oxycodone 5 mg Tablet 5 - 10 mg PO Q4H MDD Max 6/day PRN (Reason: Post op pain control) Qty: 28 0RF Continued dorzolamide-timolol (PF) [Cosopt (PF)] 2-0.5 % dropperette 1 drops OP BID atorvastatin [Lipitor] 20 mg tablet 20 mg PO PM fluticasone propionate 50 mcg/actuation spray,suspension 2 spray intranasal DAILY PRN (Reason: Congestion) Qty: 16 6RF Rx Instructions: administer into each nostril trazodone 50 mg tablet 50 mg PO HS azelastine 137 mcg (0.1 %) spray,non-aerosol 2 spray intranasal BID PRN (Reason: nasal congestion) Qty: 30 11RF Rx Instructions: administer into each nostril ipratropium bromide 21 mcg (0.03 %) spray,non-aerosol 2 spray intranasal TID PRN (Reason: postnasal drip) Qty: 30 11RF Rx Instructions: administer into each nostril indapamide 2.5 mg Tablet 2.5 mg PO QAM potassium chloride 10 mEq Tablet Extended Release 40 meq PO BID levothyroxine 150 mcg Tablet 150 mcg PO 5XWK fluoxetine [Prozac] 20 mg Capsule 40 mg PO QAM Lumigan 0.01 % Drops 1 drp OPHTHALMIC (EYE) PM calcium carb-D3-mag ox-zinc ox 333 mg-133 unit -133 mg-5 mg Tablet 1 tab PO QAM hydrocodone-acetaminophen 5-325 mg tablet 1 tab PO Q6H PRN (Reason: pain) Qty: 20 0RF celecoxib [Celebrex] 200 mg Capsule 200 mg PO BID PRN (Reason: Pain) buspirone 5 mg Tablet 5 mg PO TID PRN (Reason: Anxiety) Rhopressa 0.02 % Drops 1 drp OPHTHALMIC (EYE) PM acetaminophen 500 mg Tablet 1,000 mg PO Q6H PRN (Reason: Pain) Discharge Orders: Discharge Order (Routine); Ordered 06/17/25 Ordered By: Josue Reyes Admission Data Admit Date/Time: 06/16/25 08:55 Attending Provider: Brigido Manrique Admit Provider: Brigido Manrique Primary Care Provider: Uday Leblanc Other Providers: [facility]
[2025-06-19] MEDS ORDERED: Scopolamine REMOVE TRANSDERM PATCH ONE (08:00)
== END 2025-06-17 11:56 | disposition home health service (06) | DRG 470 ==
LOC: ASU 05:31 → PACUINP 08:55 → 3N 11:58